=== PATIENT | female | born 1985 | race Caucasian/White ===

== ENCOUNTER → 2020-04-08 09:08 | Outpatient (BNVA) | payer OTHER, SELFPAY | PROVIDERS: Visit Provider Surgery | DX: Z48.89 Encounter for other specified surgical aftercare (principal) | CPT/HCPCS: 99212 ==

== ENCOUNTER 2021-09-06 09:15 | Outpatient (REF) | payer OTHER, SELFPAY ==
--- NOTE | ~2021-09-06 | CT_ITS ---
EXAMINATION: CT CHEST WITH CONTRAST CLINICAL INFORMATION: Lymphoma COMPARISON: Previous chest CT most recent December 2019 TECHNIQUE: Multidetector volumetric CT imaging of the chest was obtained after the administration of 80 mL of Omnipaque 350 intravenous contrast without immediate adverse reactions. Axial MIP volume rendering provided. Sagittal and coronal reformatted images were obtained. This CT examination was performed using dose optimization techniques as appropriate, variously including the following: *Automated exposure control *Adjustment of mA and/or kV according to patient size (this includes techniques or standardized protocols for targeted exams where dose is matched to indication/reason for exam; i.e. extremities or head) *Use of iterative reconstruction technique DLP: 375 mGy-cm FINDINGS: LUNGS: There is a 3 mm peripheral semisolid right lower lobe nodule axial 7. This is new from previous exam December 2019. The lungs are otherwise clear. MEDIASTINUM: There is interval decrease in mediastinal lymphadenopathy. Largest mediastinal lymph node is a subcarinal lymph node that measures 1.5 cm in short axis compared to 1.8 cm December 2019 exam. Abnormal soft tissue in the anterior superior mediastinum and prominent thymic tissue on December 2019 exam has completely resolved. There are no enlarged hilar lymph nodes. The heart does not appear enlarged. There is no pericardial effusion. The thoracic aorta is normal in caliber. There is a right jugular port with tip projecting over the SVC. PLEURA: There is no pleural effusion. No pleural mass or thickening. AXILLA: There are small bilateral axillary lymph nodes. No enlarged axillary lymph nodes or chest wall mass. UPPER ABDOMEN: The liver is low in attenuation suggestive of fatty infiltration. OSSEOUS STRUCTURES: There is mild curvature of the proximal thoracic spine to the left. CT/CT chest w con IMPRESSION: Interval decrease in mediastinal lymphadenopathy. New small 3 mm right lower lobe nodule. Fleischner guidelines were followed.
--- NOTE | ~2021-09-06 | CT_ITS ---
EXAMINATION: CT SOFT TISSUE NECK WITH CONTRAST CLINICAL INFORMATION: 36-year-old with history of Hodgkin's lymphoma undergoing surveillance. COMPARISON: 01/06/2020 CT neck. TECHNIQUE: Following the intravenous administration of 80 mL of Omnipaque 350 intravenous contrast, helical imaging was performed in the axial plane with generation of coronal and sagittal reformatted images. This CT examination was performed using dose optimization techniques as appropriate, variously including the following: *Automated exposure control *Adjustment of mA and/or kV according to patient size (this includes techniques or standardized protocols for targeted exams where dose is matched to indication/reason for exam; i.e. extremities or head) *Use of iterative reconstruction technique DLP: 666 mGy-cm FINDINGS: Skull Base: The bony skull base appears grossly intact. Visualized calvarium is intact. The mastoids and middle ear cavities are unopacified. The visualized paranasal sinuses are unopacified. Limited assessment of the visualized intracranial structures demonstrates no acute process within the limitations of the study. Suprahyoid Neck: The nasopharynx, cosmetologist and parapharyngeal spaces appear within normal limits with a normal appearance to the oropharynx and retropharynx. Major salivary glands appear normal in morphology and attenuation. The oral tongue, base of the tongue and floor of the mouth structures are symmetric and appear grossly unremarkable stable in appearance. There is a 1.7 x 0.7 cm level 1B lymph node on the right slightly more prominent than on the previous exam. There is a subcentimeter lymph node at level 1B on the left which is grossly stable in appearance. Another tiny level 1B lymph node on the left is stable. Other small level 1B lymph nodes bilaterally and small level 1A lymph nodes are stable. Note is made of a 1.5 x 0.9 cm level 2A lymph node on the right stable in appearance. Other smaller level 2A lymph nodes bilaterally are stable. A 0.8 x 0.6 cm level 2A lymph node on the left appears smaller than previous exam. There are numerous subcentimeter bilateral level 2B lymph nodes which appear fairly stable compared to previous study with the fat stranding again noted in the left posterior triangle. There is a subcentimeter retention cyst in the right side of the vallecula stable in appearance. Lingual tonsils enhance normally. Epiglottis appears normal. Infrahyoid Neck: The hypopharynx, larynx and thyroid gland appear within normal limits stable in appearance. Tracheoesophageal grooves appear normal. Multiple small level 5A lymph nodes are noted on the right stable in appearance. Some level 3B lymph nodes noted on the right are stable. A few nonenlarged level 5B lymph nodes are noted on the right stable in appearance. There is normal opacification of the major arterial and venous structures in the neck. Upper Chest: See accompanying CT of the chest of the same day. Multiple mediastinal lymph nodes are noted. Skeletal: Skeletal structures appear intact. No focally aggressive osseous lesions. Right-sided [id number] noted in place. Other Comments: None CT/CT soft tissue neck w con IMPRESSION: 1. Numerous suprahyoid and infrahyoid cervical lymph nodes bilaterally, with a right-sided level 1B lymph node which appears slightly more prominent and a left-sided level 2A lymph node which appears slightly diminished in size with multiple other lymph nodes as described above which are largely stable in appearance. Correlate with followup PET/CT if clinically warranted. 2. See accompanying CT of the chest report.
[2021-09-06] MEDS: iohexoL 350 MG/ML 100 ML INFUS..BTL IV (10:41)
== END 2021-09-06 09:16 | disposition home or self-care (01) ==
LOC: HO.CT 09:15
PROVIDERS: Visit Provider Internal Medicine
DX: C85.90 Non-Hodgkin lymphoma, unspecified, unspecified site (principal); R91.1 Solitary pulmonary nodule; Z95.828 Presence of other vascular implants and grafts
CPT/HCPCS: 70491; 71260; Q9967

== ENCOUNTER 2022-03-27 15:35 | Outpatient (REF) | payer OTHER, SELFPAY ==
--- NOTE | ~2022-03-27 | CT_ITS ---
EXAMINATION: CT SOFT TISSUE NECK WITH CONTRAST CLINICAL INFORMATION: Prominent lymph node on prior imaging. Reported history of Hodgkin's lymphoma. COMPARISON: CT dated 09/06/2021. TECHNIQUE: Following the intravenous administration of 100 mL of Omnipaque 350 contrast, helical imaging was performed in the axial plane with generation of coronal and sagittal reformatted images. This CT examination was performed using dose optimization techniques as appropriate, variously including the following: *Automated exposure control *Adjustment of mA and/or kV according to patient size (this includes techniques or standardized protocols for targeted exams where dose is matched to indication/reason for exam; i.e. extremities or head) *Use of iterative reconstruction technique DLP: 624 mGy-cm FINDINGS: A prior, slightly prominent, right submandibular triangle lymph node has decreased in size and is otherwise unremarkable. Remaining cervical lymph nodes are without significant change as compared to the prior examination. No adenopathy is otherwise evident. There is no contour abnormality or pathologic enhancement within the oral cavity, pharyngeal mucosal space, or larynx. The thyroid gland is normal. No mediastinal or axillary adenopathy is seen. A right-sided chest port device is in place. The parotid and submandibular glands are normal. The carotid sheath vasculature opacifies normally. The orbits are normal. The airway is normally maintained. There are mild dependent subsegmental atelectatic changes in the lungs and a mild degree of mosaic attenuation as well, further assessed on the patient's dedicated chest CT examination. No acute osseous abnormality is seen. Very mild lower cervical spondylosis noted. The imaged paranasal sinuses and mastoid air cells are clear. The TMJs are normal. The imaged portions of the brain demonstrate no acute abnormality. CT/CT soft tissue neck w IV con IMPRESSION: Previous prominent right submandibular triangle lymph node has decreased in size and is otherwise normal with a reniform morphology. Remaining cervical lymph nodes are stable. No additional cervical adenopathy or acute process.
[2022-03-27] MEDS: iohexoL 350 MG/ML 100 ML INFUS..BTL IV (16:08)
== END 2022-03-27 15:36 | disposition home or self-care (01) ==
LOC: HO.CT 15:35
PROVIDERS: Visit Provider Internal Medicine
DX: C85.90 Non-Hodgkin lymphoma, unspecified, unspecified site (principal)
CPT/HCPCS: 70491; Q9967

== ENCOUNTER 2022-10-02 09:28 | Outpatient (REF) | payer OTHER, SELFPAY ==
--- NOTE | ~2022-10-02 | CT_ITS ---
EXAMINATION: CT CHEST WITH CONTRAST CLINICAL INFORMATION: Lymphoma. Surveillance. COMPARISON: Previous chest CT most recent August 2021 TECHNIQUE: Multidetector volumetric CT imaging of the chest was obtained after the administration of 65 mL of Omnipaque 350 intravenous contrast without immediate adverse reactions. Axial MIP volume rendering provided. Sagittal and coronal reformatted images were obtained. This CT examination was performed using dose optimization techniques as appropriate, variously including the following: *Automated exposure control *Adjustment of mA and/or kV according to patient size (this includes techniques or standardized protocols for targeted exams where dose is matched to indication/reason for exam; i.e. extremities or head) *Use of iterative reconstruction technique DLP: 146 mGy-cm FINDINGS: PROJECT GEOLOGIST: LUNGS: Stable 3 mm peripheral or subpleural nodule adjacent to the minor fissure axial image 89 series 7. Some heterogeneous attenuation at the lung bases questionable for hypoventilatory changes related to air trapping. The lungs are otherwise clear. MEDIASTINUM: Upper normal-size mediastinal lymph nodes. Largest lymph nodes are a right precarinal lymph node measuring 1 cm in short axis and subcarinal lymph node measuring 1.3 cm in short axis. There are small bilateral hilar lymph nodes. Normal heart size. No pericardial effusion. Normal caliber thoracic aorta. Right jugular port with tip projecting over the SVC. PLEURA: There is no pleural effusion. No pleural mass or thickening. AXILLA: Small bilateral axillary lymph nodes. These are similar to previous exam. No enlarged lymph nodes. No chest wall mass. UPPER ABDOMEN: The gallbladder is been removed. The liver is low in attenuation suggestive of fatty infiltration. OSSEOUS STRUCTURES: Unremarkable. CT/CT chest w IV con IMPRESSION: Stable small right pulmonary nodule and upper normal-size mediastinal and small bilateral hilar lymph nodes. Chest CT follow-up as per protocol. Fleischner guidelines were followed.
[2022-10-02] MEDS: iohexoL 350 MG/ML 100 ML INFUS..BTL IV (10:31)
== END 2022-10-02 09:29 | disposition home or self-care (01) ==
LOC: HO.CT 09:28
PROVIDERS: Visit Provider Internal Medicine
DX: C85.90 Non-Hodgkin lymphoma, unspecified, unspecified site (principal)
CPT/HCPCS: 71260; Q9967

== ENCOUNTER 2022-10-16 06:49 | Day surgery (SDC) | payer OTHER, SELFPAY ==
--- NOTE | ~2022-10-16 | IR_ITS ---
EXAMINATION: IR REMOVAL OF PORT CLINICAL INDICATION: Lymphoma treatment is over. The catheter port is not needed anymore. TECHNIQUE: Following obtaining informed consent for removal of a Port-A-Cath, 1% lidocaine was inserted along the anterior chest wall where the port hardware is located. A small skin incision was performed. The pocket was bluntly dissected with hemostats and the hardware was freed. The 2 sutures were removed and gently the port was pulled it is entirety. Complete hemostasis was achieved at the puncture site. The incision was sutured with 3-0 absorbable sutures and a simple dressing placed. Patient tolerated procedure extremely well. Conscious sedation was utilized and patient monitored for 28 minutes. Fluoroscopy Time: 0.1 minute. Dose Area Product: 14 cGy-cm2. IR/IR cvc remove tunnel w prt/utility person FINDINGS/IMPRESSION: Successful removal of right Port-A-Cath with local anesthesia and conscious sedation.
[2022-10-16 07:00] VITALS: BMI 33.3
[2022-10-16 07:14] LABS: MANUAL DIFF FLAG NO
[2022-10-16 07:16] LABS: Basophils Percent Auto 0.4 % (0-2); Eosinophils Absolute Auto 0.2 X10*3/uL (0.0-0.4); Eosinophils Percent Auto 1.8 % (0-4); Hematocrit 38.2 % (37.0-47.0); Hemoglobin 12.8 g/dl (12.0-16.0); Imm Gran Abs Auto 0.02 X10*3/uL (0.00-0.03); Imm Gran Pct Auto 0.2 % (0.0-0.4); Lymphocytes Absolute Auto 3.6 X10*3/uL (1.2-4.9); Lymphocytes Percent Auto 38.2 % (20-40); Mean Corpuscular HGB Conc 33.5 g/dl (31.0-35.0); Mean Corpuscular Hemoglobin 30.4 pg (27.0-33.0); Mean Corpuscular Volume 90.7 fL (80.0-98.0); Mean Platelet Volume 9.6 fL (9.4-12.3); Monocytes Absolute Auto 0.7 X10*3/uL (0.1-1.2); Monocytes Percent Auto 7.3 % (2-11); Neutrophils Absolute Auto 4.9 x10*3/uL (2.0-8.3); Neutrophils Percent Auto 52.1 % (45-73); Platelet Count 269 X10*3/uL (160-400); Red Blood Count 4.21 X10*6/uL (4.20-5.50); Red Cell Distribution Width 12.9 % (11.0-16.0); White Blood Count 9.5 X10*3/uL (4.8-10.8)
[2022-10-16 07:22] LABS: Prothrombin Time 11.3 SEC (10.0-13.1)
[2022-10-16 07:24] LABS: Partial Thromboplastin Time 33.4 SEC (26.0-36.4)
[2022-10-16 07:25] LABS: UPreg QC Valid YES; Urine Pregnancy NEGATIVE (NEGATIVE)
[2022-10-16 10:23] VITALS: BP 139/70; PULSE 64; RESP 16; TEMP 36.4; O2SAT 96
[2022-10-16 10:38] VITALS: BP 131/64; PULSE 64; RESP 16; O2SAT 96
[2022-10-16 10:43] VITALS: BP 124/60; PULSE 64; RESP 16; O2SAT 96
[2022-10-16 10:58] VITALS: BP 127/67; PULSE 65; RESP 16; O2SAT 96
[2022-10-16 11:28] VITALS: BP 136/77; PULSE 65; RESP 16; O2SAT 96
[2022-10-16 12:00] VITALS: BP 127/79; PULSE 70; RESP 16; TEMP 36.4; O2SAT 96
== END 2022-10-16 12:21 | disposition home or self-care (01) ==
PROVIDERS: Radiology Diagnostic Radiology; Visit Provider Internal Medicine
PROC: (CPT 36590; principal; 2022-10-16 08:30)
DX: Z45.2 Encounter for adjustment and management of vascular access device (principal); C85.90 Non-Hodgkin lymphoma, unspecified, unspecified site
CPT/HCPCS: 36415; 36590; 81025; 85025; 85610; 85730; 99152; 99153; J0690; J2250; J3010